=== PATIENT | male | born 1970 | race Caucasian/White ===

== ENCOUNTER 2018-05-08 12:40 | Emergency (ER) | payer MEDICARE ==
[2018-05-08 13:09] VITALS: O2SAT 98
--- NOTE | 2018-05-08 13:12 | ERPHSYRPT ---
- History of Present Illness Time Seen by Provider: 05/08/18 12:50 Source: patient, family Physician History: 47 y/o morbidly obese white male presents with left lower ext redness and tenderness. sx began this am. pt is not diabetic. pt has h/o lymphedema and recurrent cellulitis in bilat lower ext. pt also has h/o dvt and pulm embolism. pt is on xarelto. pt has no cp, no soa and no abd pain. pt on 4 liters oxygen nc chronically. Timing/Duration: today Quality: painful Severity: mild Location: extremities (left lower ext) Possible Causes: other (cellulitis) Associated Symptoms: change in skin texture, edema, No difficulty breathing, No fever, No flushing, No headache, No hives, No jaundice, No malaise, No nasal congestion, No numbness, No pallor, No paresthesia, No petechiae, No rash, No sore throat, No swelling/mass/lumps Allergies/Adverse Reactions: No Known Drug Allergies Allergy (Unverified 11/03/15 12:33) Home Medications: Furosemide 40 mg [Lasix 40 MG] 40 mg PO BID 05/21/16 [History] Oxycodone / APAP 10/325 mg [Oxycodone-Acetaminophen 10-325] 1 tab PO Q4H 05/21/16 [History] Potassium Chloride 20 Meq [Klor-Con 20 MEQ] 20 meq PO BID 05/21/16 [History] Pyridoxine HCl (Vitamin B6) [Vitamin B-6] 25 mg PO DAILY 05/21/16 [History] Rivaroxaban [Xarelto] 20 mg PO DAILY 05/21/16 [History] Levothyroxine Sodium 100 Mcg [Synthroid 100 Mcg] 100 mcg PO DAILY 10/10/16 [History] Nitroglycerin 0.4 mg Tablet [Nitrostat 0.4 MG Tablet] 0.4 mg SL Q5MIN PRN MR X 3 PRN 10/10/16 [History] Simvastatin [Zocor] 10 mg PO DAILY 10/10/16 [History] Cyanocobalamin (Vitamin B-12) [Vitamin B-12] 1,000 mcg PO DAILY 10/12/16 [ History] Cholecalciferol (Vitamin D3) [Vitamin D3] 5,000 unit PO 03/26/17 [History] Cyanocobalamin (Vitamin B-12) [Vitamin B12] 2,500 mcg PO 03/26/17 [History] Folic Acid 1 mg PO 03/26/17 [History] Gabapentin 300 - 600 mg PO 11/18/17 [History] Tizanidine HCl [Zanaflex] 2 mg PO HS 11/18/17 [History] Hx Tetanus, Diphtheria Vaccination/Date Given: No Hx Influenza Vaccination/Date Given: No Hx Pneumococcal Vaccination/Date Given: No - Review of Systems Constitutional: No Symptoms, No Fever, No Chills Eyes: No Symptoms, No Eye Pain Ears, Nose, & Throat: No Symptoms, No Ear Pain Respiratory: No Symptoms, No Cough, No Dyspnea, No Stridor, No Wheezing Cardiac: No Symptoms, No Chest Pain, No Palpitations, No Syncope Abdominal/Gastrointestinal: No Symptoms, No Abdominal Pain, No Nausea, No Vomiting, No Diarrhea Genitourinary Symptoms: No Symptoms, No Dysuria, No Frequency, No Hematuria Musculoskeletal: No Symptoms, No Back Pain, No Neck Pain, No Deformity, No Fall , No Injury Skin: Cellulitis, Other (chronic bilat lower ext ulcerations and lymphedema) Neurological: No Symptoms Psychological: No Symptoms Endocrine: No Symptoms Hematologic/Lymphatic: No Symptoms Immunological/Allergic: No Symptoms All Other Systems: Reviewed and Negative - Past Medical History Pertinent Past Medical History: Yes Neurological History: Migraines, Peripheral Neuropathy ENT History: No Pertinent History Cardiac History: No Pertinent History Respiratory History: COPD, Sleep Apnea Endocrine Medical History: Hypothyroidism, Liver Disease Musculoskeletal History: Arthritis, Degenerative Disk Disease, Fractures GI Medical History: No Pertinent History History: No Pertinent History Psycho-Social History: Anxiety, Depression Male Reproductive Disorders: No Pertinent History Other Medical History: 4L O2 - Past Surgical History Past Surgical History: Yes Neuro Surgical History: No Pertinent History Cardiac: No Pertinent History Respiratory: No Pertinent History Gastrointestinal: No Pertinent History Genitourinary: No Pertinent History Musculoskeletal: No Pertinent History Male Surgical History: No Pertinent History Other Surgical History: bronchoscopy - Social History Smoking Status: Current every day smoker Exposure to second hand smoke: No Drug Use: none Patient Lives Alone: No - Nursing Vital Signs Nursing Vital Signs: Initial Vital Signs Temperature 98.6 F 05/08/18 13:00 Pulse Rate 92 H 09/27/18 13:00 Respiratory Rate 18 05/08/18 13:00 Blood Pressure 111/79 05/08/18 13:00 O2 Sat by Pulse Oximetry 98 05/08/18 13:00 Pain Scale Pain Intensity 8 - Physical Exam General Appearance: mild distress, alert, anxiety Eye Exam: PERRL/EOMI, eyes nml inspection Ears, Nose, Throat Exam: normal ENT inspection Neck Exam: normal inspection, non-tender, supple, full range of motion Respiratory Exam: normal breath sounds, lungs clear, airway intact, No chest tenderness, No respiratory distress, No accessory muscle use, No rhonchi, No wheezing, No stridor Cardiovascular Exam: regular rate/rhythm, normal heart sounds, normal peripheral pulses Gastrointestinal/Abdomen Exam: soft, normal bowel sounds, No tenderness, No guarding, No rebound Extremity Exam: normal range of motion, tenderness, other (left lower ext cellulitis; bilat lymphedema; bilat pedal pulses palpable) Neurologic Exam: alert, oriented x 3, cooperative, 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, normal mood/affect, nml cerebellar function Skin Exam: other (see above) Lymphatic Exam: No adenopathy SpO2 Interpretation: normal Oxygen Delivery: Room Air - Course Nursing assessment & vital signs reviewed: Yes Ordered Tests: Medication Summary Discontinued Medications Generic Name Dose Route Start Last Admin Trade Name Saulq PRN Reason Stop Dose Admin Ceftriaxone Sodium 1,000 mg 05/08/18 13:22 Rocephin 1000 Mg Inj IM 05/08/18 13:23 STAT ONE Hydromorphone HCl 1 mg 05/08/18 13:22 Hydromorphone 1 Mg/Ml Ampule IM 05/08/18 13:23 STAT ONE Ondansetron HCl 4 mg 05/08/18 13:24 Zofran Odt 4 Mg PO 05/08/18 13:25 STAT ONE - Progress Progress: unchanged Progress Note: 05/08/18 13:15 1300 spoke with henrik priest. i reviewed pt hx and condition. this is dr. priest's pt. he agrees d dimer would likely be elevated. no need to draw this test and based on what i told him, no need for venous doppler or cta of chest. pt is on xarelto. pt denies cp and denies soa. pt has h/o recurrent lower ext cellulitis. therefore, only tx his cellulitis. 05/08/18 13:21 pt wants narcotics here but none for home Discussed with Dr.: Emily Counseled pt/family regarding: diagnosis, need for follow-up - Departure Time of Disposition: 13:26 Departure Disposition: Home Clinical Impression: Lymphedema, Cellulitis Condition: Stable Critical Care Time: No Referrals: LYNDSEY PRIEST [Primary Care Provider] - Additional Instructions: keep left leg elevated above heart when not ambulating. call dr. priest for further management. take medications as prescribed Prescriptions: Levofloxacin [Levaquin 500 MG Tablet] 500 mg PO DAILY #7 tablet
[2018-05-08] MEDS ORDERED: Hydromorphone 1 mg/ml Ampule IM ONE (13:22)
[2018-05-08] MEDS ORDERED: Rocephin 1000 MG INJ IM ONE (13:22)
[2018-05-08] MEDS ORDERED: ZOFRAN ODT 4 MG PO ONE (13:24)
[2018-05-08] MEDS ORDERED: ZOFRAN ODT 4 MG ONE (13:28)
[2018-05-08] MEDS ORDERED: Hydromorphone 1 mg/ml Ampule ONE (13:29)
[2018-05-08] MEDS ORDERED: Rocephin 1000 MG INJ ONE (13:29)
[2018-05-08] MEDS ORDERED: XYLOCAINE 1% HCL 20 ML MDV ONE (13:29)
[2018-05-08 14:29] VITALS: BP 111/94; PULSE 91
== END 2018-05-08 14:41 | disposition home or self-care (01) ==
LOC: ED 12:40
DX: R59.1 Generalized enlarged lymph nodes (principal); L03.116 Cellulitis of left lower limb; F41.9 Anxiety disorder, unspecified; F32.9 Major depressive disorder, single episode, unspecified; Z79.899 Other long term (current) drug therapy; E66.01 Morbid (severe) obesity due to excess calories; Z79.01 Long term (current) use of anticoagulants
CPT/HCPCS: 96372; 99284; J0696; J1170; Q0162

== ENCOUNTER 2018-05-09 20:57 | Emergency (ER) | payer MEDICARE ==
[2018-05-09 21:16] VITALS: BP 139/84; PULSE 78; O2SAT 99
[2018-05-09] MEDS ORDERED: Rocephin 1000 MG INJ IM ONE (21:18)
[2018-05-09] MEDS ORDERED: TORAdol 30 mg Injection IM ONE (21:19)
[2018-05-09] MEDS ORDERED: TORAdol 30 mg Injection ONE (21:21)
[2018-05-09] MEDS ORDERED: Rocephin 1000 MG INJ ONE (21:22)
[2018-05-09] MEDS ORDERED: XYLOCAINE 1% HCL 20 ML MDV ONE (21:24)
--- NOTE | 2018-05-09 21:30 | ERPHSYRPT ---
- History of Present Illness Time Seen by Provider: 05/09/18 21:20 Source: patient, family Exam Limitations: no limitations Patient Subjective Stated Complaint: Left lower leg pain/swelling Triage Nursing Assessment: Patient brought into ER via W/C and transferred to bed with assist of 2. Patient complains of left lower leg pain/swelling. Patient's left lower leg noted to be red, warm and swollen. Patient has raised area to the middle of back side of left calf. Patient complains of pain 10/10. Patient's pedal pulse present to left foot. Physician History: Left lower leg pain/swelling for 3 days, patient was in ER with same problems in ER and was given rocephin 1gm IM and diluadid. pain got worse today Severity: moderate Modifying Factors: Improves With: cold therapy Allergies/Adverse Reactions: No Known Drug Allergies Allergy (Verified 05/09/18 21:16) Home Medications: Furosemide 40 mg [Lasix 40 MG] 40 mg PO BID 05/21/16 [History] Oxycodone / APAP 10/325 mg [Oxycodone-Acetaminophen 10-325] 1 tab PO Q4H 05/21/16 [History] Potassium Chloride 20 Meq [Klor-Con 20 MEQ] 20 meq PO BID 05/21/16 [History] Pyridoxine HCl (Vitamin B6) [Vitamin B-6] 25 mg PO DAILY 05/21/16 [History] Rivaroxaban [Xarelto] 20 mg PO DAILY 05/21/16 [History] Levothyroxine Sodium 100 Mcg [Synthroid 100 Mcg] 100 mcg PO DAILY 10/10/16 [History] Nitroglycerin 0.4 mg Tablet [Nitrostat 0.4 MG Tablet] 0.4 mg SL Q5MIN PRN MR X 3 PRN 10/10/16 [History] Simvastatin [Zocor] 10 mg PO DAILY 10/10/16 [History] Cyanocobalamin (Vitamin B-12) [Vitamin B-12] 1,000 mcg PO DAILY 10/12/16 [ History] Cholecalciferol (Vitamin D3) [Vitamin D3] 5,000 unit PO 03/26/17 [History] Cyanocobalamin (Vitamin B-12) [Vitamin B12] 2,500 mcg PO 03/26/17 [History] Folic Acid 1 mg PO 03/26/17 [History] Gabapentin 300 - 600 mg PO 11/18/17 [History] Tizanidine HCl [Zanaflex] 2 mg PO HS 11/18/17 [History] Hx Tetanus, Diphtheria Vaccination/Date Given: No Hx Influenza Vaccination/Date Given: No Hx Pneumococcal Vaccination/Date Given: No Immunizations Up to Date: Yes - Review of Systems Constitutional: Fever, Chills Eyes: No Symptoms Ears, Nose, & Throat: No Symptoms Respiratory: No Symptoms Cardiac: No Symptoms Abdominal/Gastrointestinal: No Symptoms Genitourinary Symptoms: No Symptoms Musculoskeletal: No Symptoms Skin: Cellulitis, Induration Neurological: No Symptoms Endocrine: No Symptoms - Past Medical History Pertinent Past Medical History: Yes Neurological History: Migraines, Peripheral Neuropathy ENT History: No Pertinent History Cardiac History: No Pertinent History Respiratory History: COPD, Sleep Apnea Endocrine Medical History: Hypothyroidism, Liver Disease Musculoskeletal History: Arthritis, Degenerative Disk Disease, Fractures GI Medical History: No Pertinent History History: No Pertinent History Psycho-Social History: Anxiety, Depression Male Reproductive Disorders: No Pertinent History Other Medical History: 4L O2 - Past Surgical History Past Surgical History: Yes Neuro Surgical History: No Pertinent History Cardiac: No Pertinent History Respiratory: No Pertinent History Gastrointestinal: No Pertinent History Genitourinary: No Pertinent History Musculoskeletal: No Pertinent History Male Surgical History: No Pertinent History Other Surgical History: bronchoscopy - Social History Smoking Status: Current every day smoker Exposure to second hand smoke: No Drug Use: none Patient Lives Alone: No - Nursing Vital Signs Nursing Vital Signs: Initial Vital Signs Temperature 97.6 F 05/09/18 21:04 Pulse Rate 78 05/09/18 21:04 Respiratory Rate 20 05/09/18 21:04 Blood Pressure 139/84 05/09/18 21:04 O2 Sat by Pulse Oximetry 99 05/09/18 21:04 Pain Scale Pain Intensity 10 - Physical Exam General Appearance: mild distress Eye Exam: PERRL/EOMI Ears, Nose, Throat Exam: normal ENT inspection Neck Exam: normal inspection Respiratory Exam: normal breath sounds Cardiovascular Exam: regular rate/rhythm Gastrointestinal/Abdomen Exam: soft Extremity Exam: inflammation, swelling, tenderness Neurologic Exam: alert, oriented x 3 SpO2: 99 Oxygen Delivery: Nasal Cannula - Course Nursing assessment & vital signs reviewed: Yes Ordered Tests: Medication Summary Discontinued Medications Generic Name Dose Route Start Last Admin Trade Name Sarah PRN Reason Stop Dose Admin Ceftriaxone Sodium 2,000 mg 05/09/18 21:18 05/09/18 21:28 Rocephin 1000 Mg Inj IM 05/09/18 21:19 2,000 mg STAT ONE Administration Ceftriaxone Sodium Confirm 05/09/18 21:22 Rocephin 1000 Mg Inj Administered 05/09/18 21:23 Dose 2,000 mg .ROUTE .STK-MED ONE Ketorolac Tromethamine 60 mg 05/09/18 21:19 05/09/18 21:28 Toradol 30 Mg Injection IM 05/09/18 21:20 60 mg STAT ONE Administration Ketorolac Tromethamine Confirm 05/09/18 21:21 Toradol 30 Mg Injection Administered 05/09/18 21:22 Dose 60 mg .ROUTE .STK-MED ONE Lidocaine HCl Confirm 05/09/18 21:24 Xylocaine 1% Hcl 20 Ml Mdv Administered 05/09/18 21:25 Dose 5 ml .ROUTE .STK-MED ONE - Progress Progress: unchanged, pain not gone completely - Departure Time of Disposition: 21:30 Departure Disposition: Home Clinical Impression: Cellulitis Qualifiers: Site of cellulitis: extremity Site of cellulitis of extremity: lower extremity Laterality: left Qualified Code(s): L03.116 - Cellulitis of left lower limb Condition: Stable Critical Care Time: No Referrals: LYNDSEY PRIEST [Primary Care Provider] - Instructions: Cellulitis (Skin Infection), Adult (DC) Additional Instructions: start ceftriaxone 2 gm Intramuscularly daily for 7 days as outpatient. Continue levaquin as prescribed. take levaquin with food. Please follow the instructions given to you. Please take your medication as prescribed if given. If symptoms recur or get worse, come back to the emergency room if you cannot reach your primary care physician, or call your primary care physician for an appointment. Again if your symptoms get worse, come back to the emergency room. Thanks for visiting emergency room, and let us take care of you. RADHAJAMAR LOPEZ was seen on 05/09/18 n the Emergency Room. At that time you were treated for an emergent condition, during your visit Laboratory, Radiology and/or other procedures may have been ordered. It is very important that you follow-up with your Primary Care Physician LYNDSEY PRIEST within the next 24-48 hours to review your Emergency Room visit and the final results of testing that was ordered. Some test results such as Urine Cultures, Blood Cultures, and other cultures if ordered will not be finalized for 24-48 hours. If you do not have a Primary Care Provider please call the medical records department at [phone] to obtain a copy of your results or you may sign into our patient portal to obtain these results by visiting us @ [email or web address] and completing the following steps: 1. Click on the Patient Portal link 2. Click the Patient Self Enrollment Link to complete the enrollment form and entering your 3. Once the enrollment form is completed you will receive an email with a temporary ID and password at the email address you provided. 4. Next choose a user name and password. Your user name must be at least 4 characters long and your password must be at least 4 characters long. 5. Choose a security question from the list and provide your answer to the question. If you already have signed into the Health Portal you may access your Health Care Information 04/03 by the following steps: 1. Login to our website @ [email or web address] 2. Enter your original user name and password. FAQS The [facility] Health Portal is an online tool that contains your Lab Results, Radiology Reports, Visit History, Discharge Instructions and Health Summary Lab and Radiology Results will not be available for 72 hours on the portal. The Portal is a secure site, passwords are encryted and URLs are re-written so they cannot be copied and pasted. You and authorized family members are the only ones who can access your Portal. Also there is a timeout feature that protects your information if you leave the Portal page open. If you have technical difficulty please use the Contact Us link on the page this will allow you to submit any questions you have regarding the Portal or you may contact the Medical Record Department at [phone]. come to outpatient dept for antibiotic injection of ceftriaxone 2 gm Intramuscularly for 7 days. Follow up with Dr Ruperto Priest in 2-3 days. continue all your other home meds including xarelto. Prescriptions: Oxycodone HCl/Acetaminophen [Percocet 5-325 mg Tablet] 1 each PO Q6H PRN PRN 5 Days #20 tablet MDD 4 a day PRN Reason: Severe Pain
== END 2018-05-09 22:00 | disposition home or self-care (01) ==
LOC: ED 20:57
DX: L03.116 Cellulitis of left lower limb (principal); M79.662 Pain in left lower leg; Z79.899 Other long term (current) drug therapy
CPT/HCPCS: 96372; 99283; J0696; J1885

== ENCOUNTER 2018-11-09 00:42 | Emergency (ER) | payer MEDICARE | END 2018-11-09 00:54 | disposition left against medical advice (07) | LOC: ED 00:42 | DX: Z48.89 Encounter for other specified surgical aftercare (principal) | CPT/HCPCS: 99281; G0463 ==

== ENCOUNTER 2019-02-17 06:06 | Day surgery (SDC) | payer MEDICARE ==
[2019-02-17] MEDS ORDERED: Lactated Ringers 1,000 ML IV ONE (06:51)
[2019-02-17] MEDS ORDERED: Lactated Ringers 1,000 ML IV SCH (07:00)
[2019-02-17] MEDS ORDERED: DIPRIVAN 200 MG/20 ML IV ONE (07:47)
[2019-02-17] MEDS ORDERED: Ketamine HCl 50 MG/ML ONE (07:48)
[2019-02-17] MEDS ORDERED: PHENYLEPHRINE HCL ONE (08:17)
[2019-02-17 09:10] VITALS: PULSE 67; O2SAT 95
[2019-02-17 09:21] VITALS: BP 124/65
--- NOTE | 2019-02-17 09:32 | OP ---
SURGERY DATE/TIME: 02/17/2019 0805 PREOPERATIVE DIAGNOSIS: Screening exam. POSTOPERATIVE DIAGNOSIS: Polyp in the cecum. PROCEDURE: Colonoscopy with hot polypectomy removal of the polyp and cold biopsy forceps biopsy of the polyp. SURGEON: Dr. Valle. ANESTHESIA: MAC. Medications given by anesthesia department. HISTORY: The patient is a 48 year-old white male presenting now for screening colonoscopy. He was appraised of the risks of the procedure including the risk of perforation, phlebitis, untoward reaction to medication, bleeding and missed lesions. The patient verbalized his understanding and desired to have the procedure performed. DESCRIPTION OF PROCEDURE: The patient was given the medications by the anesthesia department. He had continuous pulse oximetry, ECG monitoring, intermittent blood pressure monitoring and tidal CO2 monitoring during the examination. He was placed in the left lateral decubitus position. A digital rectal examination was performed and revealed external hemorrhoids, normal anal sphincter tone, no masses and normal prostate. The flexible Olympus pediatric colonoscope was used to intubate the rectum. A view of the colon was developed sequentially to the cecum. Upon insertion and withdrawal there was noted a sessile polyp measuring approximately 1 cm in diameter in the cecum, this is removed using hot polypectomy snare after being biopsied with cold biopsy forceps. The polyp fragments were retrieved and sent to pathology for evaluation. The scope was removed from the patient who tolerated the procedure well and was sent back to OP recovery in good condition. The prep was noted to be fair to good.
== END 2019-02-17 09:15 | disposition home or self-care (01) ==
LOC: SDC 06:06
PROVIDERS: ATTEND Family Medicine
DX: Z12.11 Encounter for screening for malignant neoplasm of colon (principal); D12.0 Benign neoplasm of cecum; I10 Essential (primary) hypertension
CPT/HCPCS: J2370; J2704

== ENCOUNTER 2020-05-04 23:01 | Emergency (ER) | payer MEDICARE ==
--- NOTE | 2020-05-04 23:05 | ERPHSYRPT ---
- History of Present Illness Time Seen by Provider: 05/04/20 23:05 Source: patient Exam Limitations: no limitations Physician History: This is a morbidly obese 49-year-old white male with chronic bilateral lower extremity lymphedema 3 of deep venous thromboses and recurrent cellulitis in his lower extremities and presents with pain in his left calf since earlier this evening. Patient states that he was fine yesterday and this morning his left leg felt a little different. This evening he started having pain when he laid his left leg down onto a surface. Patient denies chest pain he denies shortness of breath. There was some redness in the left calf area. Patient feels this is primarily cellulitis and not a deep venous thrombosis but felt he better come in for pain control, antibiotics and possible evaluation for deep venous thrombosis. Patient is on Xarelto. He has not taken his evening dose yet. Method of Injury: other Occurred: this evening Quality: burning, other Severity of Pain-Max: moderate Severity of Pain-Current: moderate Lower Extremities Pain: other: left (Calve) Associated Symptoms: none Allergies/Adverse Reactions: No Known Drug Allergies Allergy (Verified 05/04/20 23:15) Home Medications: Furosemide 40 mg [Lasix 40 MG] 40 mg PO BID 05/21/16 [History] Potassium Chloride 20 Meq [Klor-Con 20 MEQ] 20 meq PO BID PRN 05/21/16 [History] Rivaroxaban [Xarelto] 20 mg PO DAILY 05/21/16 [History] Nitroglycerin 0.4 mg Tablet [Nitrostat 0.4 MG Tablet] 0.4 mg SL Q5MIN PRN MR X 3 PRN 10/10/16 [History] Simvastatin [Zocor] 10 mg PO DAILY 10/10/16 [History] Tizanidine HCl [Zanaflex] 2 mg PO HS 11/18/17 [History] Albuterol 8 gm Mdi Hfa [Ventolin Hfa MDI] 2 puffs IH QID 02/16/19 [History] Levothyroxine Sodium 75 Mcg [Synthroid 75 Mcg] 75 mcg PO DAILY 02/16/19 [History] Metoprolol Tartrate 50 mg [Lopressor 50 MG] 50 mg PO BID 02/16/19 [History] Spironolactone 25 mg [Aldactone 25 MG] 25 mg PO DAILY 02/16/19 [History] Tiotropium Br/Olodaterol HCl [Stiolto Respimat Inhal Alexander] 2 puffs IH BID 02/16/19 [History] Hx Tetanus, Diphtheria Vaccination/Date Given: No Hx Influenza Vaccination/Date Given: No Hx Pneumococcal Vaccination/Date Given: No Travel Risk - International Travel Have you traveled outside of the country in past 3 weeks: No - Coronavirus Screening Are you exhibiting any of the following symptoms?: No Close contact with a COVID-19 positive Pt in past 14-21 Days: No - Review of Systems Constitutional: No Symptoms Eyes: No Symptoms Ears, Nose, & Throat: No Symptoms Respiratory: No Symptoms Cardiac: No Symptoms Abdominal/Gastrointestinal: No Symptoms Genitourinary Symptoms: No Symptoms Musculoskeletal: Other (Left calf pain) Skin: Cellulitis (Mild, left calf) Neurological: No Symptoms Psychological: No Symptoms Endocrine: No Symptoms Hematologic/Lymphatic: No Symptoms Immunological/Allergic: No Symptoms All Other Systems: Reviewed and Negative - Past Medical History Pertinent Past Medical History: Yes Neurological History: Migraines, Peripheral Neuropathy ENT History: No Pertinent History Cardiac History: Deep Vein Thrombosis, High Cholesterol, Hypertension, Other Respiratory History: COPD, Pulmonary Embolism, Sleep Apnea Endocrine Medical History: Hypothyroidism, Liver Disease Musculoskeletal History: Arthritis, Degenerative Disk Disease, Fractures GI Medical History: No Pertinent History History: No Pertinent History Psycho-Social History: Anxiety, Depression Male Reproductive Disorders: No Pertinent History Other Medical History: 4L O2 at home on roomair now. aortic valve disease - Past Surgical History Past Surgical History: Yes Neuro Surgical History: No Pertinent History Cardiac: No Pertinent History Respiratory: No Pertinent History Gastrointestinal: No Pertinent History Genitourinary: No Pertinent History Musculoskeletal: No Pertinent History Male Surgical History: Testicular Surgery Other Surgical History: bronchoscopy. hx testicular abcess - Social History Smoking Status: Current every day smoker Exposure to second hand smoke: No Drug Use: none Patient Lives Alone: No - Nursing Vital Signs Nursing Vital Signs: Initial Vital Signs Temperature 98.3 F 05/04/20 23:07 Pulse Rate 88 05/04/20 23:07 Respiratory Rate 24 05/04/20 23:07 Blood Pressure 114/83 05/04/20 23:07 O2 Sat by Pulse Oximetry 94 L 05/04/20 23:07 Pain Scale Pain Intensity 7 - Physical Exam General Appearance: no apparent distress, alert, anxiety, obese Eyes, Ears, Nose, Throat Exam: normal ENT inspection, moist mucous membranes Neck Exam: normal inspection, non-tender, supple, full range of motion Cardiovascular/Respiratory Exam: chest non-tender Gastrointestinal/Abdominal Exam: non-tender Back Exam: normal inspection, normal range of motion, No CVA tenderness, No vertebral tenderness Hips Exam: bilateral: non-tender, normal inspection, normal range of motion, no evidence of injury Legs Exam: bilateral leg: non-tender, normal inspection, normal range of motion, no evidence of injury Knees Exam: bilateral knee: non-tender, normal inspection, normal range of motion, no evidence of injury Ankle Exam: right ankle: non-tender, normal inspection, normal range of motion, no evidence of injury, left ankle: soft tissue tenderness (There is evidence of cellulitis in the left calf tracking caudally. Patient has significant lymphedema bilaterally. Skin is very dry. Patient has strong palpable pedal pulses bilaterally) Foot Exam: bilateral foot: non-tender, normal inspection, normal range of motion, no evidence of injury Neuro/Tendon Exam: normal sensation, normal motor functions, normal tendon functions Mental Status Exam: alert, oriented x 3, cooperative Skin Exam: other (Cellulitis left calf and ankle) SpO2 Interpretation: borderline oxygenation O2 Delivery: Room Air - Course Nursing assessment & vital signs reviewed: Yes - Progress Progress: unchanged Counseled pt/family regarding: diagnosis, need for follow-up - Departure Departure Disposition: Home Clinical Impression: Cellulitis of left ankle Condition: Stable Critical Care Time: No Referrals: TAYLOR VALLE [Primary Care Provider] - Additional Instructions: Keep your appointment for your left lower extremity venous Doppler for tomorrow on 05/05/2020. Take your Xarelto tonight as prescribed. Call Dr. Valle's office tomorrow to obtain the results of your venous Doppler test. Take your antibiotics as prescribed. Prescriptions: Smz/Tmp Ds Tablet [Bactrim Ds Tablet] 1 udtab PO BID #14 tablet
[2020-05-04] MEDS ORDERED: Rocephin 1000 MG INJ IM ONE (23:28)
[2020-05-04] MEDS ORDERED: OXYCODONE-ACETAMINOPHEN 10-325 PO STA (23:29)
[2020-05-04] MEDS ORDERED: PERCOCET TABLET 5/325MG PO STA (23:39)
[2020-05-04] MEDS ORDERED: Rocephin 1000 MG INJ ONE (23:41)
[2020-05-04] MEDS ORDERED: OXYCODONE-ACETAMINOPHEN 10-325 ONE (23:41)
[2020-05-05] MEDS ORDERED: PERCOCET TABLET 5/325MG ONE (00:08)
[2020-05-05 00:36] VITALS: BP 128/81; PULSE 85; O2SAT 96
== END 2020-05-05 00:22 | disposition home or self-care (01) ==
LOC: ED 23:01
DX: L03.116 Cellulitis of left lower limb (principal)
CPT/HCPCS: 96372; 99283; J0696; A9270-GY

== ENCOUNTER 2021-12-13 17:48 | Emergency (ER) | payer MEDICARE ==
--- NOTE | 2021-12-13 18:25 | ERPHSYRPT ---
- History of Present Illness Source: patient Exam Limitations: no limitations Patient Subjective Stated Complaint: Pt states "I have a bad back anyway but I couldn't even sleep last night. My lower back hurts so bad." Triage Nursing Assessment: PT presented alert and oriented X 3, skin pwd. PT ambulates with a slow hunched over gait, pt grunting when he moves. Pt in no apaprent respiratory distress Physician History: 51 yo morbidly obese WM w Lumbar pain w worsening lumbar pain x 1 day. Pt has a h/o chronic lumbar pain but worse over the last 1-2 days. Pain is 10/10 and worse w movement. He denies dysuria/hematuria/fever/incontinence/trauma-injury. Pain does not radiate. Timing/Duration: other (Worse last 2 days) Method of Injury: other (Chronic lumbar pain) Quality: aching Back Pain Location: lumbar spine Severity of Pain-Max: severe Severity of Pain-Current: severe Modifying Factors: Improves With: movement Associated Symptoms: lower back pain, No fever, No chills, No sweating, No urinary incontinence, No loss of bowel control, No constipation, No nausea, No vomiting, No problems urinating, No light-headedness, No dizziness, No numbness in legs/feet, No weakness, No sensory/motor loss, No tingling in legs/feet, No muscle spasms Previous symptoms: same symptoms as today Allergies/Adverse Reactions: No Known Drug Allergies Allergy (Verified 05/04/20 23:15) Home Medications: Furosemide 40 mg [Lasix 40 MG] 40 mg PO BID 05/21/16 [History] Potassium Chloride 20 Meq [Klor-Con 20 MEQ] 20 meq PO BID PRN 05/21/16 [History] Rivaroxaban [Xarelto] 20 mg PO DAILY 05/21/16 [History] Nitroglycerin 0.4 mg Tablet [Nitrostat 0.4 MG Tablet] 0.4 mg SL Q5MIN PRN MR X 3 PRN 10/10/16 [History] Simvastatin [Zocor] 10 mg PO DAILY 10/10/16 [History] Tizanidine HCl [Zanaflex] 2 mg PO HS 11/18/17 [History] Albuterol 8 gm Mdi Hfa [Ventolin Hfa MDI] 2 puffs IH QID 02/16/19 [History] Levothyroxine Sodium 75 Mcg [Synthroid 75 Mcg] 75 mcg PO DAILY 02/16/19 [History] Metoprolol Tartrate 50 mg [Lopressor 50 MG] 50 mg PO BID 02/16/19 [History] Spironolactone 25 mg [Aldactone 25 MG] 25 mg PO DAILY 02/16/19 [History] Tiotropium Br/Olodaterol HCl [Stiolto Respimat Inhal [place]] 2 puffs IH BID 02/16/19 [History] Hx Tetanus, Diphtheria Vaccination/Date Given: No Hx Influenza Vaccination/Date Given: No Hx Pneumococcal Vaccination/Date Given: No Immunizations Up to Date: Yes Travel Risk - International Travel Have you traveled outside of the country in past 3 weeks: No - Coronavirus Screening Are you exhibiting any of the following symptoms?: No Close contact with a COVID-19 positive Pt in past 14-21 Days: No - Vaccine Status Have you recieved a Covid-19 vaccination: No - Review of Systems Constitutional: No Symptoms Eyes: No Symptoms Ears, Nose, & Throat: No Symptoms Respiratory: No Symptoms Cardiac: No Symptoms Abdominal/Gastrointestinal: No Symptoms Genitourinary Symptoms: No Symptoms Musculoskeletal: No Symptoms, Back Pain Skin: No Symptoms Neurological: No Symptoms Psychological: No Symptoms Endocrine: No Symptoms Hematologic/Lymphatic: No Symptoms Immunological/Allergic: No Symptoms - Past Medical History Pertinent Past Medical History: Yes Neurological History: Migraines, Peripheral Neuropathy ENT History: No Pertinent History Cardiac History: Deep Vein Thrombosis, High Cholesterol, Hypertension, Other Respiratory History: COPD, Pulmonary Embolism, Sleep Apnea Endocrine Medical History: Hypothyroidism, Liver Disease Musculoskeletal History: Arthritis, Degenerative Disk Disease, Fractures GI Medical History: No Pertinent History History: No Pertinent History Psycho-Social History: Anxiety, Depression Male Reproductive Disorders: No Pertinent History Other Medical History: 4L O2 at home on roomair now. aortic valve disease - Past Surgical History Past Surgical History: Yes Neuro Surgical History: No Pertinent History Cardiac: No Pertinent History Respiratory: No Pertinent History Gastrointestinal: No Pertinent History Genitourinary: No Pertinent History Musculoskeletal: No Pertinent History Male Surgical History: Testicular Surgery Other Surgical History: bronchoscopy. hx testicular abcess - Social History Smoking Status: Current every day smoker How long have you smoked: years Exposure to second hand smoke: No Drug Use: none Patient Lives Alone: No Significant Family History: no pertinent family hx - Nursing Vital Signs Nursing Vital Signs: Initial Vital Signs Temperature 98.3 F 12/13/21 18:05 Pulse Rate 86 12/13/21 18:05 Respiratory Rate 24 12/13/21 18:05 Blood Pressure 114/77 12/13/21 18:05 O2 Sat by Pulse Oximetry 96 12/13/21 18:05 Pain Scale Pain Intensity [Right Back] 8 Pain Intensity 9 WNL - Physical Exam General Appearance: no apparent distress Eye Exam: PERRL/EOMI, eyes nml inspection Ears, Nose, Throat Exam: normal ENT inspection, TMs normal, pharynx normal, moist mucous membranes Neck Exam: normal inspection, non-tender, supple, full range of motion, No meningismus, No mass, No Brudzinski, No Kernig's Respiratory Exam: normal breath sounds, lungs clear, airway intact Cardiovascular Exam: regular rate/rhythm, normal heart sounds, normal peripheral pulses, capillary refill <2 sec, No murmur Gastrointestinal Exam: soft, normal bowel sounds, No tenderness Back Exam: vertebral tenderness (TTP mid-lumbar area and B paraspinous musculature/No pain w stiff leg raises/Reflexes symmetric) Extremity Exam: normal inspection, normal range of motion Neurologic Exam: alert, oriented x 3, cooperative, 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 tested, normal mood/affect, nml cerebellar function, nml station & gait, sensation nml, No motor deficits, No sensory deficit Skin Exam: normal color, warm Lymphatic Exam: No adenopathy SpO2 Interpretation: normal SpO2: 96 O2 Delivery: Room Air - Course Nursing assessment & vital signs reviewed: Yes Ordered Tests: Active Orders 24 hr Category Date Time Status UA W/RFX CULTURE Stat Lab 12/13/21 19:17 Completed Medication Summary Discontinued Medications Generic Name Dose Route Start Last Admin Trade Name Freq PRN Reason Stop Dose Admin Ketorolac Tromethamine 30 mg 12/13/21 19:35 12/13/21 19:57 Ketorolac Tromethamine 30 Mg/Ml Inj IM 12/13/21 19:36 30 mg STAT ONE Administration Ketorolac Tromethamine Confirm 12/13/21 19:56 Ketorolac Tromethamine 30 Mg/Ml Inj Administered 12/13/21 19:57 Dose 30 mg .ROUTE .STK-MED ONE Lab/Rad Data: Laboratory Results 12/13/21 Range/Units 19:17 Urinalys Dipstick Clnc MAIN LAB Urine Color DARK YELLOW (YELLOW) Urine Appearance CLEAR (CLEAR) Urine pH 6.5 (5-6) Ur Specific [place] >=1.030 (1.005-1.025) POC Urine Protein Conf NEGATIVE (Negative) Urine Ketones NEGATIVE (NEGATIVE) Urine Nitrite NEGATIVE (NEGATIVE) Urine Bilirubin NEGATIVE (NEGATIVE) Urine Urobilinogen 0.2 (0-1) mg/dL Urine Leukocytes NEGATIVE (NEGATIVE) Urine WBC (Auto) NONE (0-5) /HPF Urine RBC (Auto) NONE (0-2) /HPF U Hyaline Cast (Auto) 0-2 (0-2) /LPF U Epithel Cells (Auto) NONE (FEW) /HPF Urine Bacteria (Auto) NONE (NEGATIVE) /HPF Urine RBC NEGATIVE (0-5) Melvin/ul Urine Mucus (Auto) SLIGHT (NEGATIVE) /HPF Ur Culture Indicated? NO Urine Glucose NEGATIVE (NEGATIVE) mg/dL - Progress Progress: improved Progress Note: 12/13/21 19:41 30mg IM Toradol Counseled pt/family regarding: lab results, diagnosis, need for follow-up - Departure Departure Disposition: Home Clinical Impression: Lumbar pain, Morbid obesity Condition: Stable Critical Care Time: No Referrals: TAYLOR COLES [Primary Care Provider] - Follow up/PCP as directed Instructions: Low Back Pain (DC) Additional Instructions: Rest/Heat/Massage Etodolac/Norflex as needed Follow up with your family MD in 1-2 days Return to ER for increasing pain, temperature greater than 100.5, or blood in urine Prescriptions: Etodolac 400 mg [Lodine 400 mg] 400 mg PO BID PRN #14 tablet PRN Reason: Pain Orphenadrine Citrate 100 mg [Norflex 100 MG Tablet] 100 mg PO BID PRN #14 tab PRN Reason: Pain
[2021-12-13 19:23] LABS: Hyaline Casts 0-2 /LPF (0-2); Mucus SLIGHT /HPF (NEGATIVE)
[2021-12-13 19:27] LABS: Appearance CLEAR (CLEAR); Bilirubin NEGATIVE (NEGATIVE); Dipstick done @ ? MAIN LAB; Glucose NEGATIVE (NEGATIVE); Ketones NEGATIVE (NEGATIVE); Nitrite NEGATIVE (NEGATIVE); Ph 6.5 (5-6); Protein,Urine Dip NEGATIVE (Negative); RBC NEGATIVE Ery/ul (0-5); Specific Gravity >=1.030 (1.005-1.025); Urobilinogen 0.2 mg/dL (0-1)
[2021-12-13 19:29] LABS: Urine Cultured Indicated? NO
[2021-12-13] MEDS ORDERED: TORAdol 30 mg Injection IM ONE (19:35)
[2021-12-13] MEDS ORDERED: TORAdol 30 mg Injection ONE (19:56)
[2021-12-13 20:21] VITALS: BP 116/71; PULSE 102
[2021-12-13 21:45] VITALS: O2SAT 96
== END 2021-12-13 20:35 | disposition home or self-care (01) ==
LOC: ED 17:48
DX: M54.50 Low back pain, unspecified (principal); E66.01 Morbid (severe) obesity due to excess calories; G89.29 Other chronic pain; E78.5 Hyperlipidemia, unspecified; I10 Essential (primary) hypertension; J44.9 Chronic obstructive pulmonary disease, unspecified; Z72.0 Tobacco use; Z99.81 Dependence on supplemental oxygen; Z79.01 Long term (current) use of anticoagulants; Z79.899 Other long term (current) drug therapy
CPT/HCPCS: 81015; 96372; 99283; J1885

== ENCOUNTER 2023-06-30 11:07 | Emergency (ER) | payer MEDICARE ==
[2023-06-30] MEDS ORDERED: HYDROCODONE-ACETAMIN 10-325 MG ONE (11:16)
[2023-06-30 11:25] VITALS: RESP 18; TEMP 97.3; O2SAT 99
--- NOTE | 2023-06-30 12:01 | ERPHSYRPT ---
- History of Present Illness Time Seen by Provider: 06/30/23 11:10 Patient Subjective Stated Complaint: Wrist/hand pain- left Triage Nursing Assessment: Patient ambulated back to ED and transferred self to bed. Patient A+O X3. Patient's skin pink, warm and dry. Patient states he moved in his bed last night and caught himself with his left hand from following out of the bed. Patient complains of left wrist/hand pain 04/21. Swelling noted to left wrist and hand. Pulses present. Physician History: 53-year-old male presented in the ER with chief complaint of left wrist pain after he accidentally hit her wrist against a metal of the bed while asleep. This happened around 3:30 AM. Patient reports moderate to severe sharp pain with some swelling on the dorsum of wrist which is reproducible with movements at the wrist. No numbness or tingling in the fingers. No injury anywhere else. Exam she has dorsal left wrist tenderness. Tenderness of distal radius. Restricted range of motion. Distal neurovascular intact. He is given [place] for symptomatic relief. Patient is on Xarelto. X-rays questionable distal radial fracture. Placed in Velcro splint and outpatient orthopedics follow-up recommended in the morning. We will give him pain medication. Recommended intermittent ice application. Discussed signs symptoms of worsening needing return to ER which he seems understanding. Allergies/Adverse Reactions: No Known Drug Allergies Allergy (Verified 06/30/23 11:11) Home Medications: Furosemide 40 mg [Lasix 40 MG] 40 mg PO BID 05/21/16 [History] Rivaroxaban [Xarelto] 20 mg PO DAILY 05/21/16 [History] Nitroglycerin 0.4 mg Tablet [Nitrostat 0.4 MG Tablet] 0.4 mg SL Q5MIN PRN MR X 3 PRN 10/10/16 [History] Simvastatin [Zocor] 10 mg PO DAILY 10/10/16 [History] Albuterol 8 gm Mdi Hfa [Ventolin Hfa MDI] 2 puffs IH QID 02/16/19 [History] Levothyroxine Sodium 75 Mcg [Synthroid 75 Mcg] 75 mcg PO DAILY 02/16/19 [History] Metoprolol Tartrate 50 mg [Lopressor 50 MG] 50 mg PO BID 02/16/19 [History] Spironolactone 25 mg [Aldactone 25 MG] 25 mg PO DAILY 02/16/19 [History] Tiotropium Br/Olodaterol HCl [Stiolto Respimat Inhal [place]] 2 puffs IH BID 02/16/19 [History] Amlodipine Besylate 2.5 mg PO DAILY 02/25/23 [History] Atorvastatin Calcium 40 mg PO DAILY 02/25/23 [History] Omeprazole 20 mg PO DAILY 02/25/23 [History] Hx Tetanus, Diphtheria Vaccination/Date Given: No Hx Influenza Vaccination/Date Given: No Hx Pneumococcal Vaccination/Date Given: No Immunizations Up to Date: Yes Travel Risk - International Travel Have you traveled outside of the country in past 3 weeks: No - Coronavirus Screening Are you exhibiting any of the following symptoms?: No Close contact with a COVID-19 positive Pt in past 14-21 Days: No - Vaccine Status Have you recieved a Covid-19 vaccination: No - Review of Systems Constitutional: No Symptoms Ears, Nose, & Throat: No Symptoms Respiratory: No Symptoms Cardiac: No Symptoms Abdominal/Gastrointestinal: No Symptoms Musculoskeletal: Injury, Joint Pain, Joint Swelling Skin: No Symptoms Neurological: No Symptoms - Past Medical History Pertinent Past Medical History: Yes Neurological History: Migraines, Peripheral Neuropathy ENT History: No Pertinent History Cardiac History: Deep Vein Thrombosis, High Cholesterol, Hypertension, Other Respiratory History: COPD, Pulmonary Embolism, Sleep Apnea Endocrine Medical History: Hypothyroidism, Liver Disease Musculoskeletal History: Arthritis, Degenerative Disk Disease, Fractures GI Medical History: No Pertinent History History: No Pertinent History Psycho-Social History: Anxiety, Depression Male Reproductive Disorders: No Pertinent History Other Medical History: 4L O2 at home on roomair now. aortic valve disease - Past Surgical History Past Surgical History: Yes Neuro Surgical History: No Pertinent History Cardiac: Valve Replacement Respiratory: No Pertinent History Gastrointestinal: No Pertinent History Genitourinary: No Pertinent History Musculoskeletal: No Pertinent History Male Surgical History: Testicular Surgery Other Surgical History: bronchoscopy. hx testicular abcess - Social History Smoking Status: Current every day smoker How long have you smoked: years Exposure to second hand smoke: No Drug Use: none Patient Lives Alone: No Significant Family History: no pertinent family hx - Nursing Vital Signs Nursing Vital Signs: Initial Vital Signs Temperature 97.3 F 06/30/23 11:12 Pulse Rate 69 06/30/23 11:12 Respiratory Rate 18 06/30/23 11:12 Blood Pressure 141/87 06/30/23 11:12 O2 Sat by Pulse Oximetry 99 06/30/23 11:12 Pain Scale Pain Intensity 9 - Physical Exam General Appearance: no apparent distress Eye Exam: PERRL/EOMI Neck Exam: normal inspection, full range of motion Respiratory Exam: normal breath sounds, lungs clear Cardiovascular Exam: regular rate/rhythm, normal heart sounds Extremity Exam: joint swelling, limited range of motion, swelling, tenderness Neurologic Exam: alert, oriented x 3, cooperative, 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 as tested SpO2 Interpretation: normal SpO2: 99 O2 Delivery: Room Air Ordered Tests: Active Orders 24 hr Category Date Time Status HAND (MINIMUM 3 VIEWS) Stat Exams 06/30/23 11:11 Taken WRIST (MIN 3 VIEWS) Stat Exams 06/30/23 11:11 Taken Medication Summary Discontinued Medications Generic Name Dose Route Start Last Admin Trade Name Sarah PRN Reason Stop Dose Admin Hydrocodone Bitart/Acetaminophen Confirm 06/30/23 11:16 Hydrocodone/Acetamin 10-325 Mg Tablet Administered 06/30/23 11:17 Dose 1 tablet .ROUTE .STK-MED ONE - Progress Progress: pain not gone completely Progress Note: 06/30/23 12:33 53-year-old male presented in the ER with chief complaint of left wrist pain after he accidentally hit her wrist against a metal of the bed while asleep. This happened around 3:30 AM. Patient reports moderate to severe sharp pain with some swelling on the dorsum of wrist which is reproducible with movements at the wrist. No numbness or tingling in the fingers. No injury anywhere else. Exam she has dorsal left wrist tenderness. Tenderness of distal radius. Restricted range of motion. Distal neurovascular intact. He is given [place] for symptomatic relief. Patient is on Xarelto. X-rays questionable distal radial fracture reviewed by me, official report is pending. Placed in Velcro splint and outpatient orthopedics follow-up recommended in the morning. We will give him pain medication. Recommended intermittent ice a pplication. Discussed signs symptoms of worsening needing return to ER which he seems understanding. 06/30/23 12:33 Counseled pt/family regarding: diagnosis, need for follow-up, rad results Medical Desision Making - Diagnostic Testing Diagnostic test were ordered, analyzed, and reviewed by me: Yes Radiological Interpretation: Interpreted by me, Reviewed by me - Departure Departure Disposition: Home Clinical Impression: Contusion of wrist, left Condition: Stable Critical Care Time: No Referrals: TAYLOR COLES [Primary Care Provider] - Follow up with PCP 1 day [facility] - RENÉE SANTILLAN NP [NON-STAFF PHY W/O PRIVILEGES] - Follow up/PCP as directed (Tomorrow morning for reevaluation) Instructions: Common Wrist Injuries (DC) Additional Instructions: Intermittent ice application. Take pain medications as needed. Follow-up with orthopedics for reevaluation in the morning. Return to ER for any worsening. Do not take NSAIDs Prescriptions: Hydrocodone/Acetaminophen [Hydrocodone-Acetamin 7.5-325] 1 each PO Q6HPRN PRN 3 Days #12 tablet MDD 4 PRN Reason: Pain
[2023-06-30 12:49] VITALS: BP 140/80; PULSE 74
--- NOTE | 2023-06-30 18:02 | XRAY ---
Indication: Pain following injury. Comparison: None 3 view left hand demonstrates minimal degenerative changes all IP joints, mild 3rd MCP degenerative changes, and mild 1st metacarpal multangular scaphoid degenerative changes. No other bony, articular, or soft tissue abnormalities.
--- NOTE | 2023-06-30 18:02 | XRAY ---
Indication: Pain following injury. Comparison: None 3 view left wrist demonstrates mild 1st metacarpal multangular scaphoid degenerative changes. No other bony, articular, or soft tissue abnormalities.
== END 2023-06-30 12:50 | disposition home or self-care (01) ==
LOC: ED 11:07
DX: S60.212A Contusion of left wrist, initial encounter (principal); W22.09XA Striking against other stationary object, initial encounter; Y93.84 Activity, sleeping; Y92.003 Bedroom of unspecified non-institutional (private) residence as the place of occurrence of the external cause; E78.5 Hyperlipidemia, unspecified; I10 Essential (primary) hypertension; Z79.01 Long term (current) use of anticoagulants; Z79.891 Long term (current) use of opiate analgesic; Z79.899 Other long term (current) drug therapy; Z28.310 Unvaccinated for COVID-19; Z72.0 Tobacco use
CPT/HCPCS: 73110; 73130; 99283; L3908; A9270-GY

== ENCOUNTER 2024-03-01 15:20 | Emergency (ER) | payer MEDICARE ==
[2024-03-01 15:34] VITALS: RESP 24; TEMP 97.8
[2024-03-01 16:30] LABS: Hematocrit 47.2 % (40.1-51.0); Hemoglobin 16.3 g/dL (13.7-17.5); Mean Cell Volume 87.6 fL (79.0-92.2); Mean Corpuscular Hemoglobin 30.2 pg (25.7-32.2); Mean Corpuscular Hgb Concent. 34.5 g/dL (32.3-36.5); Mean Platelet Volume 9.9 fL (9.4-12.4); Platelet Count 261 x10^3/uL (163-337); Red Blood Count 5.39 x10^6/uL (4.63-6.08); Red Cell Distribution Width 13.6 % (11.6-14.4)
[2024-03-01] MEDS ORDERED: Zofran 4 MG/2 ML VIAL ONE (16:33)
[2024-03-01] MEDS: Zofran 4 MG/2 ML VIAL IV ONE (16:34)
[2024-03-01] MEDS: MORPHINE SULFATE 4 MG INJ IV ONE (16:34)
[2024-03-01] MEDS ORDERED: MORPHINE SULFATE 4 MG INJ ONE (16:34)
[2024-03-01 16:43] LABS: White Blood Count 25.4 x10^3/uL (4.23-9.07)
[2024-03-01 16:47] LABS: ALBUMIN 4.1 g/dL (3.5-5.0); ANION GAP 11.3 MEQ/L (5-15); BILIRUBIN,TOTAL 0.9 mg/dL (0.2-1.3); Calcium 9.8 mg/dL (8.4-10.2); Creatinine 1 0.75 mg/dL (0.66-1.25); EST GLOMERULAR FILTRATION RATE 106.6 ML/MIN; Potassium 4.3 mmol/L (3.5-5.1); Total Protein 7.6 g/dL (6.3-8.2)
[2024-03-01] MEDS ORDERED: PIPERACILLIN/TAZOBACTAM IV ONE (17:17)
[2024-03-01] MEDS: PIPERACILLIN/TAZOBACTAM 3.375 GM in Sodium Chloride 100ML MINI-BAG PLUS 100 ML IV ONE (17:18)
[2024-03-01] MEDS ORDERED: CLINDAMYCIN-D5W 900 MG/50 ML*** 900 MG/50 ML BAG IV ONE (17:18)
[2024-03-01] MEDS ORDERED: Sodium Chloride 100ML MINI-BAG PLUS 100 ML IV ONE (17:18)
[2024-03-01] MEDS: CLINDAMYCIN-D5W 900 MG/50 ML*** 900 MG/50 ML BAG IV STA (17:29)
[2024-03-01 17:39] LABS: Appearance Clear (Clear); Bacteria None Seen /HPF (None Seen); Bilirubin Negative (Negative); Blood Negative (Negative); Epithelial Cells None Seen /HPF (None Seen); Glucose, Urine Negative (Negative); Hyaline Casts NONE SEEN /LPF (0-2); Ketones Negative (Negative); Leukocyte Esterase Negative (Negative); Nitrite Negative (Negative); Ph 5.5 (4.6-8.0); Protein,Urine Dip Negative (Negative); Specific Gravity 1.025 (1.005-1.030); WBC 0-2 /HPF (0-5)
[2024-03-01 17:42] LABS: ADD URINE CULTURE? NO (NO)
[2024-03-01 17:59] VITALS: O2SAT 96
[2024-03-01 17:59] LABS: BAND 1 % (0.0-2.0); Lymphocytes 10 % (24-44); Neutrophils 89 % (1.78-5.38); Platelet Estimate NORMAL (NORMAL); Total Cells Counted 100
--- NOTE | 2024-03-01 18:03 | ERPHSYRPT ---
- History of Present Illness Time Seen by Provider: 03/01/24 15:38 Source: patient Exam Limitations: no limitations Patient Subjective Stated Complaint: PT states "I think I have cellulitis again in my left leg. It is always the left leg." Triage Nursing Assessment: PT presented alert and oriented x 3, skin wpd. Pt ambualtes with a limp . PT left leg swollen red and warm to touch. Physician History: 53-year-old male with history of hypertension, hypothyroidism, hyperlipidemia, GERD, chronic lymphedema, DVT on Xarelto presented to the ER with sudden worsening swelling redness and pain left lower leg since yesterday. Patient reports sharp shooting/throbbing pain with radiation to the thigh. Denies any fall or trauma. No fever or chills reported. Reports having similar symptoms in the past with cellulitis. No blisters or skin break on the leg. Allergies/Adverse Reactions: No Known Drug Allergies Allergy (Verified 06/30/23 11:11) Home Medications: Rivaroxaban [Xarelto] 20 mg PO DAILY 05/21/16 [History] Nitroglycerin 0.4 mg Tablet [Nitrostat 0.4 MG Tablet] 0.4 mg SL Q5MIN PRN MR X 3 PRN 10/10/16 [History] Simvastatin [Zocor] 10 mg PO DAILY 10/10/16 [History] Albuterol 8 gm Mdi Hfa [Ventolin Hfa MDI] 2 puffs IH QID 02/16/19 [Histo ry] Levothyroxine Sodium 75 Mcg [Synthroid 75 Mcg] 75 mcg PO DAILY 02/16/19 [History] Metoprolol Tartrate 50 mg [Lopressor 50 MG] 50 mg PO BID 02/16/19 [History] Spironolactone 25 mg [Aldactone 25 MG] 25 mg PO DAILY 02/16/19 [History] Tiotropium Br/Olodaterol HCl [Stiolto Respimat Inhaler (60)] 2 puffs IH BID 02/16/19 [History] Amlodipine Besylate 2.5 mg PO DAILY 02/25/23 [History] Atorvastatin Calcium 40 mg PO DAILY 02/25/23 [History] Omeprazole 20 mg PO DAILY 02/25/23 [History] Hx Tetanus, Diphtheria Vaccination/Date Given: No Hx Influenza Vaccination/Date Given: No Hx Pneumococcal Vaccination/Date Given: No Immunizations Up to Date: No Travel Risk - International Travel Have you traveled outside of the country in past 3 weeks: No - Emerging Infectious Disease Are you exhibiting symptoms associated with any current EIDs: No - Review of Systems Constitutional: No Symptoms Ears, Nose, & Throat: No Symptoms Respiratory: No Symptoms Cardiac: No Symptoms Abdominal/Gastrointestinal: No Symptoms Musculoskeletal: No Symptoms Skin: Rash Neurological: No Symptoms Endocrine: No Symptoms Hematologic/Lymphatic: No Symptoms - Past Medical History Pertinent Past Medical History: Yes Neurological History: Migraines, Peripheral Neuropathy ENT History: No Pertinent History Cardiac History: Deep Vein Thrombosis, High Cholesterol, Hypertension, Other Respiratory History: COPD, Pulmonary Embolism, Sleep Apnea Endocrine Medical History: Hypothyroidism, Liver Disease Musculoskeletal History: Arthritis, Degenerative Disk Disease, Fractures GI Medical History: No Pertinent History History: No Pertinent History Psycho-Social History: Anxiety, Depression Male Reproductive Disorders: No Pertinent History Other Medical History: 4L O2 at home on roomair now. aortic valve disease - Past Surgical History Past Surgical History: Yes Neuro Surgical History: No Pertinent History Cardiac: Valve Replacement Respiratory: No Pertinent History Gastrointestinal: No Pertinent History Genitourinary: No Pertinent History Musculoskeletal: No Pertinent History Male Surgical History: Testicular Surgery Other Surgical History: bronchoscopy. hx testicular abcess Significant Family History: no pertinent family hx - Social History Smoking Status: Current every day smoker How long have you smoked: years Exposure to second hand smoke: Yes Drug Use: none Patient Lives Alone: No - Social Determinants of Health Will the patient participate in the screening: Declined to provide - Nursing Vital Signs Nursing Vital Signs: Initial Vital Signs Temperature 97.8 F 03/01/24 15:30 Pulse Rate 104 H 03/01/24 15:30 Respiratory Rate 24 03/01/24 15:30 Blood Pressure 135/80 03/01/24 15:30 O2 Sat by Pulse Oximetry 94 L 03/01/24 15:30 Pain Scale Pain Intensity 0 - Physical Exam General Appearance: no apparent distress, alert Eye Exam: PERRL/EOMI Ears, Nose, Throat Exam: normal ENT inspection Neck Exam: normal inspection, full range of motion Respiratory Exam: normal breath sounds, lungs clear Cardiovascular Exam: regular rate/rhythm, normal heart sounds Gastrointestinal/Abdomen Exam: soft, No tenderness Extremity Exam: inflammation, pedal edema, swelling (Left lower leg swelling diffusely, warm, mild to moderate tenderness, edematous), tenderness Neurologic Exam: alert, oriented x 3, cooperative Skin Exam: normal color (, distal neurovascular intact) SpO2 Interpretation: normal SpO2: 96 O2 Delivery: Room Air Ordered Tests: Active Orders 24 hr Category Date Time Status VENOUS UNILAT/LIMITED EXTREMIT [US] Stat Exams 03/01/24 17:01 Taken CBC W DIFF Stat Lab 03/01/24 16:29 Completed CMP Stat Lab 03/01/24 16:29 Completed Lactic Acid Stat Lab 03/01/24 16:00 Completed Manual Differential NC Stat Lab 03/01/24 16:29 Completed PROCALCITONIN Stat Lab 03/01/24 16:29 Completed UA W/RFX UR CULTURE Stat Lab 03/01/24 17:12 Completed Medication Summary Discontinued Medications Generic Name Dose Route Start Last Admin Trade Name Freq PRN Reason Stop Dose Admin Clindamycin HCl/Dextrose 900 mg in 50 mls @ 100 mls/hr 03/01/24 17:15 03/01/24 17:29 Clindamycin-D5w 900 Mg/50 Ml IV 03/01/24 17:44 100 mls/hr STAT STA 100 mls/hr Administration Piperacillin Sod/Tazobactam 100 mls @ 200 mls/hr 03/01/24 17:15 03/01/24 17:18 Sod 3.375 gm/ Sodium Chloride IV 03/01/24 17:44 200 mls/hr STAT ONE Administration Clindamycin HCl/Dextrose Confirm 03/01/24 17:18 Clindamycin-D5w 900 Mg/50 Ml Administered 03/01/24 17:19 Dose 900 mg in 50 mls @ ud IV .STK-MED ONE Sodium Chloride Confirm 03/01/24 17:18 Sodium Chloride 100ml Mini-Bag Plus Administered 03/01/24 17:19 Dose 100 mls @ ud IV .STK-MED ONE Morphine Sulfate 4 mg 03/01/24 16:00 03/01/24 16:34 Morphine Sulfate 4 Mg/Ml Injection IV 03/01/24 16:01 4 mg STAT ONE Administration Morphine Sulfate Confirm 03/01/24 16:34 Morphine Sulfate 4 Mg/Ml Injection Administered 03/01/24 16:35 Dose 4 mg .ROUTE .STK-MED ONE Ondansetron HCl 4 mg 03/01/24 16:00 03/01/24 16:34 Ondansetron Hcl 4 Mg/2 Ml Vial IV 03/01/24 16:01 4 mg STAT ONE Administration Ondansetron HCl Confirm 03/01/24 16:33 Ondansetron Hcl 4 Mg/2 Ml Vial Administered 03/01/24 16:34 Dose 4 mg .ROUTE .STK-MED ONE Piperacillin Sod/Tazobactam Sod Confirm 03/01/24 17:17 Piperacillin/Tazobactam Sodium 3.375 Gm Vial Administered 03/01/24 17:18 Dose 3.375 gm IV .STK-MED ONE Lab/Rad Data: Laboratory Result Diagrams 03/01/24 16:29 03/01/24 16:29 Laboratory Results 03/01/24 03/01/24 03/01/24 Range/Units 17:12 16:29 16:29 WBC (4.23-9.07) x10^3/uL RBC (4.63-6.08) x10^6/uL Hgb (13.7-17.5) g/dL Hct (40.1-51.0) % MCV (79.0-92.2) fL MCH (25.7-32.2) pg MCHC (32.3-36.5) g/dL RDW (11.6-14.4) % Plt Count (163-337) x10^3/uL MPV (9.4-12.4) fL Segmented Neutrophils (1.78-5.38) % Band Neutrophils (0.0-2.0) % Lymphocytes (Manual) (24-44) % Platelet Estimate (NORMAL) RBC Morphology Sodium 135 (135-145) mmol/L Potassium 4.3 (3.5-5.1) mmol/L Chloride 104 (98-107) mmol/L Carbon Dioxide 24 (22-30) mmol/L Anion Gap 11.3 (5-15) MEQ/L BUN 16 (9-20) mg/dL Creatinine 0.75 (0.66-1.25) mg/dL Estimated GFR 106.6 ML/MIN Glucose 113 H (74-106) mg/dL Lactic Acid (0.4-2.0) Calcium 9.8 (8.4-10.2) mg/dL Total Bilirubin 0.90 (0.2-1.3) mg/dL AST 22 (17-59) U/L ALT 21 (0-50) U/L Alkaline Phosphatase 63 (38-126) U/L Serum Total Protein 7.6 (6.3-8.2) g/dL Albumin 4.1 (3.5-5.0) g/dL Procalcitonin 0.469 H (0.030-0.080) ng/mL Urine Color Yellow (Yellow) Urine Appearance Clear (Clear) Urine pH 5.5 (4.6-8.0) Ur Specific [place] 1.025 (1.005-1.030) Urine Protein Negative (Negative) Urine Glucose (UA) Negative (Negative) mg/dL Urine Ketones Negative (Negative) Urine Blood Negative (Negative) Urine Nitrite Negative (Negative) Urine Bilirubin Negative (Negative) Urine Urobilinogen 1.0 A (0.2) mg/dL Ur Leukocyte Esterase Negative (Negative) U Hyaline Cast (Auto) NONE SEEN (0-2) /LPF Urine Microscopic RBC 3-5 (0-5) /HPF Urine Microscopic WBC 0-2 (0-5) /HPF Ur Epithelial Cells None Seen (None Seen) /HPF Urine Bacteria None Seen (None Seen) /HPF Urine Culture Reflexed NO (NO) 03/01/24 03/01/24 Range/Units 16:29 16:00 WBC 25.4 H* (4.23-9.07) x10^3/uL RBC 5.39 (4.63-6.08) x10^6/uL Hgb 16.3 (13.7-17.5) g/dL Hct 47.2 (40.1-51.0) % MCV 87.6 (79.0-92.2) fL MCH 30.2 (25.7-32.2) pg MCHC 34.5 (32.3-36.5) g/dL RDW 13.6 (11.6-14.4) % Plt Count 261 (163-337) x10^3/uL MPV 9.9 (9.4-12.4) fL Segmented Neutrophils 89 H (1.78-5.38) % Band Neutrophils 1 (0.0-2.0) % Lymphocytes (Manual) 10 L (24-44) % Platelet Estimate NORMAL (NORMAL) RBC Morphology NORMAL Sodium (135-145) mmol/L Potassium (3.5-5.1) mmol/L Chloride (98-107) mmol/L Carbon Dioxide (22-30) mmol/L Anion Gap (5-15) MEQ/L BUN (9-20) mg/dL Creatinine (0.66-1.25) mg/dL Estimated GFR ML/MIN Glucose (74-106) mg/dL Lactic Acid 1.3 (0.4-2.0) Calcium (8.4-10.2) mg/dL Total Bilirubin (0.2-1.3) mg/dL AST (17-59) U/L ALT (0-50) U/L Alkaline Phosphatase (38-126) U/L Serum Total Protein (6.3-8.2) g/dL Albumin (3.5-5.0) g/dL Procalcitonin (0.030-0.080) ng/mL Urine Color (Yellow) Urine Appearance (Clear) Urine pH (4.6-8.0) Ur Specific [place] (1.005-1.030) Urine Protein (Negative) Urine Glucose (UA) (Negative) mg/dL Urine Ketones (Negative) Urine Blood (Negative) Urine Nitrite (Negative) Urine Bilirubin (Negative) Urine Urobilinogen (0.2) mg/dL Ur Leukocyte Esterase (Negative) U Hyaline Cast (Auto) (0-2) /LPF Urine Microscopic RBC (0-5) /HPF Urine Microscopic WBC (0-5) /HPF Ur Epithelial Cells (None Seen) /HPF Urine Bacteria (None Seen) /HPF Urine Culture Reflexed (NO) - Progress Progress: improved Progress Note: 03/01/24 18:01 53-year-old is evaluated for left lower extremity swelling and pain, worsening since yesterday. Patient has history of cellulitis in the same leg before. He is given symptomatic treatment for pain. Workup showed white count of 25, procalcitonin 1.46 and normal lactate. Chemistries fairly unremarkable. No bony tenderness. Ultrasound negative for DVT per preliminary report, official report is pending. I have given him a dose of Zosyn and clindamycin, recommended admission with IV antibiotics because of rapid progression of cellulitis which could progress to proximal part of left lower extremity and could worsen the morbidity and can have some complication but patient does not want to stay in the hospital at all. Patient states "I have to take care of her pet at home and no one in the [place] can stop me from going back home. Patient is not confused or altered at all. As patient's symptoms in the past improved with oral antibiotics, I will continue with clindamycin to go home and outpatient primary care follow-up recommended. Discussed signs symptoms of worsening needing return to ER which she seems understanding. Medical Desision Making - Diagnostic Testing Diagnostic test were ordered, analyzed, and reviewed by me: Yes Radiological Interpretation: Reviewed by me - Risk of complications The pt has a mod risk of morbidity or mortality based on: Need for prescription drug management - Departure Departure Disposition: Home Clinical Impression: Left leg cellulitis Condition: Stable Critical Care Time: No Referrals: TAYLOR COLES [Primary Care Provider] - Follow up with PCP 1 day Instructions: Cellulitis (Skin Infection), Adult ED Additional Instructions: Take Tylenol as needed. Keep it elevated. Follow-up with primary care for reevaluation. Return to ER for worsening pain swelling redness or if develop fever chills etc. Prescriptions: clindamycin HCL [Clindamycin HCl] 300 mg PO QID 7 Days #28 cap
[2024-03-01 18:05] VITALS: BP 128/71; PULSE 82
--- NOTE | 2024-03-01 21:04 | XRAY ---
Indication: Erythema and swelling. 2 two-dimensional sonogram and color Doppler imaging major venous vessels left leg performed. Comparison: May 05, 2020 No thrombus seen in the examined deep veins vessels left leg including greater saphenous vein. Veins demonstrate normal compressibility. Venous waveforms are normal with and without augmentation. Impression: Left leg again negative for DVT. Comment: Preliminary report was given.
== END 2024-03-01 18:11 | disposition home or self-care (01) ==
LOC: ED 15:20
DX: L03.116 Cellulitis of left lower limb (principal); M79.605 Pain in left leg; I10 Essential (primary) hypertension; E78.5 Hyperlipidemia, unspecified; Z79.01 Long term (current) use of anticoagulants; Z79.899 Other long term (current) drug therapy; Z72.0 Tobacco use
CPT/HCPCS: 36000; 36415; 80053; 81001; 83605; 84145; 85025; 93971; 96365; 96367; 96374; 96375; 99284; J2270; J2405